=== PATIENT | male | born 1995 | race Caucasian/White ===

== ENCOUNTER 2018-04-23 03:06 | Emergency (ER) | payer MEDICAID ==
[2018-04-23] MEDS ORDERED: Lidocaine 2% with EPINEPHrine 1:200,000 20 ML SDV INFILT ONE (03:21)
[2018-04-23] MEDS ORDERED: Lidocaine 1% with EPINEPHrine 1:100,000 20 ML MDV ONE (03:24)
[2018-04-23] MEDS ORDERED: Lidocaine 1% with EPINEPHrine 1:100,000 20 ML MDV INJECT ONE (03:25)
--- NOTE | 2018-04-23 03:59 | EDM.PDOC ---
ED HPI GENERAL MEDICAL PROBLEM - General Chief Complaint: Laceration Stated Complaint: RIGHT HAND AND ELBOW LACERATION Time Seen by Provider: 04/23/18 03:16 Source of Information: Reports: Patient History Limitations: Reports: No Limitations, Intoxication - History of Present Illness INITIAL COMMENTS - FREE TEXT/NARRATIVE: Patient presents with lacerations to his right hand and elbow. Apparently he was presenting anger toward his girlfriend and instead talking it through he punched the window and then used his elbow to punching another window pane. This happened approximately an hour prior to coming in. Patient not homicidal suicidal. He had been drinking a lot of alcohol earlier in the evening and is here with a sober friend. Handed. Tetanus was given within the last 5 years. No numbness or tingling. No other injury noted. - Related Data Allergies Allergy/AdvReac Type Severity Reaction Status Date / Time No Known Allergies Allergy Verified 04/23/18 03:15 Home Meds: Home Meds Venlafaxine [Effexor XR] 75 mg PO DAILY 04/23/18 [History] traZODone HCl [Trazodone HCl] 50 mg PO BEDTIME 04/23/18 [History] Past Medical History - Past Health History Medical/Surgical History: Denies Medical/Surgical History Respiratory History: Reports: Asthma Psychiatric History: Reports: Depression, PTSD - Past Surgical History HEENT Surgical History: Reports: Other (See Below) Other HEENT Surgeries/Procedures: rhinoplasty Social & Family History - Family History Family Medical History: Noncontributory - Recreational Drug Use Recreational Drug Use: Yes Recreational Drug Type: Reports: Marijuana/Hashish ED ROS GENERAL - Review of Systems Review Of Systems: See Below Respiratory: Denies: Shortness of Breath Cardiovascular: Denies: Chest Pain GI/Abdominal: Denies: Abdominal Pain Musculoskeletal: Reports: Hand Pain. Denies: Joint Pain, Muscle Pain Skin: Reports: Wound, Other (Multiple wounds to his knuckles of his right hand as well as "road rash to the right elbow) Neurological: Denies: Numbness, Paresthesia, Tingling ED EXAM, SKIN/RASH Exam: See Below Exam Limited By: Intoxication General Appearance: Alert, WD/WN, No Apparent Distress Respiratory/Chest: Lungs Clear Cardiovascular: Regular Rate, Rhythm Extremities: Arm Pain, Other (Pain to the knuckles of his right hand especially in the area of the thumb and index finger. He does have some lacerations noted to the middle finger around the MCP joint area. His a few small lacerations more proximal to the dorsum of the hand. He also has a lot of small punctate abrasions/road rash type looking areas on his right elbow. Range of motion elbow was otherwise intact range of motion to the wrist and hand are within normal limits no bony pain.) Neurological: Alert, Oriented. No: Sensory/Motor Deficit Skin: Wound/Incision Location, Skin: Upper Extremity, Right ED SKIN PROCEDURES - Laceration/Wound Repair Right Hand Lac/Wound length In cm: 5 Appearance: Subcutaneous, Stellate, Irregular, Clean Distal NVT: Neuro & Vascular Intact, No Tendon Injury Anesthetic Type: Local Local Anesthesia - Lidocaine (Xylocaine): 1% with EPI Local Anesthetic Volume: 4cc Skin Prep: Saline Exploration/Debridement/Repair: Wound Explored, In a Bloodless Field, No Foreign Material Found, Multiple Flaps Aligned Closed with: Sutures Suture Size: other # of Sutures: 6 Suture Type: Nylon Sterile Dressing Applied: Nurse Tetanus Status Addressed: No Complications: No Progress/Comments: X-rays are performed and no signs of any glass foreign bodies noted prior to suturing. Wounds were closed with 5-0 Ethilon stitches interrupted fashion wound cares instructions given and reviewed Course - Vital Signs Text/Narrative:: Wounds were all cleaned with sterile saline, examined and explored, used 1% Xylocaine with epinephrine to anesthetize wounds to the knuckles. Lacerations repaired standard fashion, x-ray of the hand performed to rule out any glass foreign bodies. The elbow seems to be otherwise intact with normal range of motion no elbow or bony pain noted. Wound care structures given and reviewed, suture removal in 7-10 days, return percussion's and wound care instructions given and reviewed. Last Recorded V/S: Last Vital Signs Temp 98.7 F 04/23/18 03:13 Pulse 100 04/23/18 03:13 Resp 16 04/23/18 03:13 BP 153/94 H 04/23/18 03:13 Pulse Ox 98 04/23/18 03:13 - Orders/Labs/Meds Orders: Active Orders 24 hr Category Date Time Status Hand 2V Rt [CR] Stat Exams 04/23/18 03:46 Taken Meds: Medications Discontinued Medications Generic Name Dose Route Start Last Admin Trade Name Freq PRN Reason Stop Dose Admin Lidocaine/Epinephrine 30 ml 04/23/18 03:21 Xylocaine-Mpf 2%-Epi 1:200,000 INFILT 04/23/18 03:22 ONETIME ONE Lidocaine/Epinephrine Confirm 04/23/18 03:24 Xylocaine 1% With Epinephrine 1:100,000 Administered 04/23/18 03:25 Dose 20 ml .ROUTE .STK-MED ONE Departure - Departure Time of Disposition: :18 Disposition: Admitted As Inpatient 66 Clinical Impression: Abrasion, elbow w/o infection Acute alcohol intoxication Qualifiers: Complication of substance-induced condition: uncomplicated Qualified Code(s): F10.929 - Alcohol use, unspecified with intoxication, unspecified Laceration of hand Qualifiers: Encounter type: initial encounter Foreign body presence: without foreign body Laterality: right Qualified Code(s): S61.411A - Laceration without foreign body of right hand, initial encounter - Discharge Information Instructions: Stitches, Fernando, or Adhesive Wound Closure, [id number], Laceration Care, Adult, [id number], Sutured Wound Care, Alcohol Intoxication Forms: ED Department Discharge Additional Instructions: Sutures need to be removed in 7-10 days. Return sooner however if any increasing signs of infection such as pain, bleeding, pus, swelling, redness, red streaks, worse - My Orders Last 24 Hours: My Active Orders 04/23/18 03:46 Hand 2V Rt [CR] Stat - Assessment/Plan Last 24 Hours: My Active Orders 04/23/18 03:46 Hand 2V Rt [CR] Stat
--- NOTE | 2018-04-23 14:07 | CR ---
Right hand: Two views of the right hand were obtained. Comparison: No prior right hand exam. Joint spaces are preserved. No fracture, dislocation or other bony abnormality is seen. Impression: 1. No abnormality is appreciated on two-view right hand exam. Diagnostic code #1
== END 2018-04-23 04:20 | disposition home or self-care (01) ==
LOC: JD.ED 03:06
DX: S61.411A Laceration without foreign body of right hand, initial encounter (principal); W22.8XXA Striking against or struck by other objects, initial encounter; F10.129 Alcohol abuse with intoxication, unspecified
CPT/HCPCS: 12002; 73120-26-RT; 73120-RT; 99283-25; 99284-25

== ENCOUNTER 2018-05-14 01:14 | Emergency (ER) | payer SELFPAY ==
--- NOTE | 2018-05-14 01:35 | EDM.PDOC ---
ED HPI GENERAL MEDICAL PROBLEM - General Chief Complaint: Laceration Stated Complaint: SUICIDE ATTEMPT Time Seen by Provider: 05/14/18 01:15 Source of Information: Reports: Patient, Significant Other (Girlfriend) History Limitations: Reports: Intoxication - History of Present Illness INITIAL COMMENTS - FREE TEXT/NARRATIVE: The patient is brought to the ED by his girlfriend after falling backwards, striking a broken mirror and cutting his left hand, around 00:50 this morning. He denies any other injuries. Review of prior medical records indicates that the patient was seen at the [place] ED on 11/28/2013 for a 0.5 cm laceration to his right forearm, then in this ED on 04/23/2018 for right hand and right elbow lacerations, after punching to window panes. The patient is behaving intoxicated, and states that he drank 1/2 of a fifth of whiskey, a fifth of vodka, and a fifth of tequila tonight. He states that he has a history of alcohol abuse, but stopped drinking when he started smoking marijuana, but because marijuana is illegal in this state, he has stopped smoking marijuana and is now drinking heavily again. The patient's PCP is Erna March. Left Hand Pain Score (Numeric/FACES): 6 - Related Data Allergies Allergy/AdvReac Type Severity Reaction Status Date / Time No Known Allergies Allergy Verified 04/23/18 03:15 Home Meds: Home Meds Venlafaxine [Effexor XR] 75 mg PO DAILY 04/23/18 [History] traZODone HCl [Trazodone HCl] 50 mg PO BEDTIME 04/23/18 [History] Past Medical History Psychiatric History: Reports: ADHD, Anxiety, Depression, PTSD - Past Surgical History HEENT Surgical History: Reports: Adenoidectomy, Naso-Sinus Surgery (Rhinoplasty) , Tonsillectomy Social & Family History - Family History Family Medical History: Noncontributory - Tobacco Use Smoking Status *Q: Current Every Day Smoker Years of Tobacco use: 6 Packs/Tins Daily: 0.5 - Alcohol Use Alcohol Use History: Yes Alcohol Use Frequency: Binges - Recreational Drug Use Recreational Drug Use: Yes Drug Use in Last 12 Months: Yes Recreational Drug Type: Reports: Marijuana/Hashish - Living Situation & Occupation Living situation: Reports: Single, with Significant Other (Girlfriend) ED ROS GENERAL - Review of Systems Review Of Systems: Unable To Obtain ED EXAM, SKIN/RASH Exam: See Below Exam Limited By: Intoxication General Appearance: Alert, Other (Loud, slurred speech, consistent with alcohol intoxication) Extremities: Other (There is a 1.5 cm x 1.0 cm avulsion over the left 1st MCP joint. There are two 1.5 cm curvilinear lacerations over the radial aspect of the left first IP joint. There is a 2.5 cm curvilinear laceration over the radial aspect of the left 1st MCP joint. All of these wounds were initially bleeding, but are now minimally bleeding after they were soaked in saline. Neurovascular status of the left upper extremity is intact.) Course - Vital Signs Last Recorded V/S: Last Vital Signs Temp 36.1 C 05/14/18 01:32 Pulse 110 H 05/14/18 01:32 Resp 20 05/14/18 01:32 BP 164/83 H 05/14/18 01:32 Pulse Ox 95 05/14/18 01:32 - Orders/Labs/Meds Orders: Active Orders 24 hr Category Date Time Status EKG Documentation Completion [RC] STAT Care 05/14/18 01:38 Inactive Bupivacaine 0.5% [Sensorcaine-MPF 0.5%] Med 05/14/18 01:48 Once 10 ml INJECT ONETIME ONE EPINEPHrine/Lidocaine/Tetracai [LET Soln] Med 05/14/18 01:48 Stat 3 ml TOP ONETIME STA Lidocaine 1% w/EPINEPHrine [Xylocaine 1% with Med 05/14/18 01:48 Once EPINEPHrine 1:100,000] 20 ml INJECT ONETIME ONE Medication Orders Bupivacaine HCl (Sensorcaine-Mpf 0.5%) 10 ml INJECT ONETIME ONE Stop: 05/14/18 01:49 Lidocaine/Epinephrine (Xylocaine 1% With Epinephrine 1:100,000) 20 ml INJECT ONETIME ONE Stop: 05/14/18 01:49 Lidocaine/Tetracaine (Let Soln) 3 ml TOP ONETIME STA Stop: 05/14/18 01:49 Meds: Medications Generic Name Dose Route Start Last Admin Trade Name Freq PRN Reason Stop Dose Admin Bupivacaine HCl 10 ml 05/14/18 01:48 Sensorcaine-Mpf 0.5% INJECT 05/14/18 01:49 ONETIME ONE Lidocaine/Epinephrine 20 ml 05/14/18 01:48 Xylocaine 1% With Epinephrine 1:100,000 INJECT 05/14/18 01:49 ONETIME ONE Lidocaine/Tetracaine 3 ml 05/14/18 01:48 Let Soln TOP 05/14/18 01:49 ONETIME STA - Re-Assessments/Exams Free Text/Narrative Re-Assessment/Exam: 05/14/18 01:31 Notified by Corina BALDWIN that the patient is leaving AMA. 05/14/18 01:31 Notified that the patient has changed his mind, and will now stay for evaluation. 05/14/18 01:47 The initial presentation was that this was a suicide attempt, therefore I entered psychiatric clearance orders, however, after evaluating the patient's injuries, this appears to be accidental, consistent with his story that he fell. I have canceled the psychiatric clearance orders. 05/14/18 01:49 Notified by Corina BALDWIN that the patient again changed his mind, and has left AMA, without giving me the opportunity to suture his wounds. Departure - Departure Time of Disposition: 01:49 Disposition: Against Medical Advice 07 Condition: Fair Clinical Impression: Laceration of left hand, Alcohol intoxication, Alcohol abuse - Discharge Information *PRESCRIPTION DRUG MONITORING PROGRAM REVIEWED*: Not Applicable *COPY OF PRESCRIPTION DRUG MONITORING REPORT IN PATIENT ANA: Not Applicable - My Orders Last 24 Hours: My Active Orders 05/14/18 01:38 EKG Documentation Completion [RC] STAT 05/14/18 01:48 Bupivacaine 0.5% [Sensorcaine-MPF 0.5%] 10 ml INJECT ONETIME ONE EPINEPHrine/Lidocaine/Tetracai [LET Soln] 3 ml TOP ONETIME STA Lidocaine 1% w/EPINEPHrine [Xylocaine 1% with EPINEPHrine 1:100,000] 20 ml INJECT ONETIME ONE - Assessment/Plan Last 24 Hours: My Active Orders 05/14/18 01:38 EKG Documentation Completion [RC] STAT 05/14/18 01:48 Bupivacaine 0.5% [Sensorcaine-MPF 0.5%] 10 ml INJECT ONETIME ONE EPINEPHrine/Lidocaine/Tetracai [LET Soln] 3 ml TOP ONETIME STA Lidocaine 1% w/EPINEPHrine [Xylocaine 1% with EPINEPHrine 1:100,000] 20 ml INJECT ONETIME ONE
[2018-05-14] MEDS ORDERED: Lidocaine 1% with EPINEPHrine 1:100,000 20 ML MDV INJECT ONE (01:48)
[2018-05-14] MEDS ORDERED: Lidocaine/EPINEPHrine/Tetracaine Soln 1 ML TOP STA (01:48)
[2018-05-14] MEDS ORDERED: Bupivacaine 0.5% 10 ML SDV INJECT ONE (01:48)
== END 2018-05-14 01:45 | disposition left against medical advice (07) ==
LOC: JD.ED 01:14
DX: S61.412A Laceration without foreign body of left hand, initial encounter (principal); F10.129 Alcohol abuse with intoxication, unspecified; F17.210 Nicotine dependence, cigarettes, uncomplicated; Z79.899 Other long term (current) drug therapy; W25.XXXA Contact with sharp glass, initial encounter
CPT/HCPCS: 99283; 99284

== ENCOUNTER 2018-08-30 19:52 | Emergency (ER) | payer MEDICAID ==
[2018-08-30] MEDS ORDERED: Ondansetron 4 MG Tab.DIS PO ONE (20:08)
--- NOTE | 2018-08-30 20:13 | EDM.PDOC ---
ED HPI GENERAL MEDICAL PROBLEM - General Chief Complaint: Neurological Problem Stated Complaint: UNABLE TO SPEAK OR WALK Time Seen by Provider: 08/30/18 19:58 Source of Information: Reports: Patient History Limitations: Reports: No Limitations. Denies: Altered Mental Status - History of Present Illness INITIAL COMMENTS - FREE TEXT/NARRATIVE: This is a 23-year-old male. He states he drank a whole bottle of Esequiel Mckeon last night and he has ulcers in the stomach and the kind of irritated the ulcers this morning when he woke up he took some Prilosec. Then later this afternoon he felt, nauseated and he vomited up some applesauce he had eaten previously. Then he decided that he was dehydrated and he drank 3 bottles of water that seem to stay down. He was feeling better so we decided to go to [place] and then go to [employer] to get something to eat and on the way to [place] he says he had a hard time driving so his girlfriend drove for him and when they got to [employer] he started having spasms in his arms but he was breathing really rapidly. He says he thought he was having a stroke as both of his arms were spasming up and he couldn't use his hands. By the time he got here he was still breathing somewhat rapidly but as he slowed down the symptoms are resolving. He has no history of panic attacks. He does state he thinks he took some Meth last night but he is not sure because he was drunk. Bilateral Hand Pain Score (Numeric/FACES): 2 - Related Data Allergies Allergy/AdvReac Type Severity Reaction Status Date / Time No Known Allergies Allergy Verified 08/30/18 19:59 Home Meds: Home Meds Venlafaxine [Effexor XR] 75 mg PO DAILY 04/23/18 [History] traZODone HCl [Trazodone HCl] 50 mg PO BEDTIME 04/23/18 [History] Past Medical History - Past Health History Medical/Surgical History: Denies Medical/Surgical History Respiratory History: Reports: Asthma Gastrointestinal History: Reports: Gastritis, GERD Psychiatric History: Reports: ADHD, Addiction, Anxiety, Depression, PTSD - Past Surgical History HEENT Surgical History: Reports: Adenoidectomy, Myringotomy w Tube(s), Naso- Sinus Surgery, Tonsillectomy Social & Family History - Family History Family Medical History: Noncontributory - Tobacco Use Smoking Status *Q: Current Some Day Smoker Years of Tobacco use: 5 Packs/Tins Daily: 0.2 Used Tobacco, but Quit: No Second Hand Smoke Exposure: No - Caffeine Use Caffeine Use: Reports: Coffee, Energy Drinks, Soda - Alcohol Use Days Per Week of Alcohol Use: 5 Number of Drinks Per Day: 2 Total Drinks Per Week: 10 - Recreational Drug Use Recreational Drug Use: Yes Drug Use in Last 12 Months: Yes Recreational Drug Type: Reports: Methamphetamine Recreational Drug Use Frequency: Rarely - Living Situation & Occupation Living situation: Reports: Single, with Significant Other (Girlfriend) ED ROS GENERAL - Review of Systems Review Of Systems: See Below Constitutional: Reports: Weakness. Denies: Fever, Chills HEENT: Reports: No Symptoms Respiratory: Reports: Other (Rapid breathing) Cardiovascular: Denies: Chest Pain Endocrine: Reports: No Symptoms GI/Abdominal: Reports: Nausea, Vomiting, Other (He states his stomach feels like his churning a little bit). Denies: Abdominal Pain : Reports: No Symptoms Musculoskeletal: Reports: Other (Carpal spasms in both upper extremities) Skin: Reports: No Symptoms Neurological: Reports: Numbness, Tingling, Trouble Speaking, Difficulty Walking , Other (The trouble walking and the trouble speaking has completely resolved this time once his breathing slowed down as carpal spasms resolved). Denies: Confusion, Headache Psychiatric: Reports: No Symptoms Hematologic/Lymphatic: Reports: No Symptoms - Physical Exam Exam: See Below Exam Limited By: No Limitations General Appearance: Alert, WD/WN, No Apparent Distress Eye Exam: Bilateral Eye: Normal Inspection Ears: Normal External Exam Nose: Normal Inspection Throat/Mouth: Normal Inspection, Normal Lips, Normal Voice, No Airway Compromise Head Exam: Normocephalic Neck: Supple Respiratory/Chest: No Respiratory Distress, Lungs Clear, Normal Breath Sounds, Other (He is breathing normal rate right now) Cardiovascular: Regular Rate, Rhythm, No Murmur GI/Abdominal: Soft, Other (Mild soreness in the epigastric area but there is no masses no rebound no guarding no distention and no tenderness) Neuro Exam (Abbreviated): Alert, Oriented, CN II-XII Intact, No Motor/Sensory Deficits Back Exam: Full Range of Motion Extremities: Normal Inspection, Normal Range of Motion Psychiatric: Normal Affect, Normal Mood Skin Exam: Warm, Dry Course - Vital Signs Last Recorded V/S: Last Vital Signs Temp 96.2 F 08/30/18 19:54 Pulse 109 H 08/30/18 19:54 Resp 24 H 08/30/18 19:54 BP 147/87 H 08/30/18 19:54 Pulse Ox 100 08/30/18 19:54 - Orders/Labs/Meds Labs: Laboratory Tests 08/30/18 08/30/18 Range/Units 20:20 20:20 WBC 12.54 H (4.23-9.07) K/mm3 RBC 4.91 (4.63-6.08) M/mm3 Hgb 15.1 (13.7-17.5) gm/L Hct 43.7 (40.1-51.0) % MCV 89.0 (79.0-92.2) fl MCH 30.8 (25.7-32.2) pg MCHC 34.6 (32.2-35.5) g/dl RDW Std Deviation 40.4 (35.1-43.9) fL Plt Count 256 (163-337) K/mm3 MPV 10.7 (9.4-12.3) fl Neut % (Auto) 57.6 (34.0-67.9) % Lymph % (Auto) 32.5 (21.8-53.1) % Ramsey % (Auto) 8.7 (5.3-12.2) % Eos % (Auto) 0.6 L (0.8-7.0) Baso % (Auto) 0.4 (0.1-1.2) % Neut # (Auto) 7.21 H (1.78-5.38) K/mm3 Lymph # (Auto) 4.08 H (1.32-3.57) K/mm3 Ramsey # (Auto) 1.09 H (0.30-0.82) K/mm3 Eos # (Auto) 0.08 (0.04-0.54) K/mm3 Baso # (Auto) 0.05 (0.01-0.08) K/mm3 Sodium 141 (136-145) mEq/L Potassium 3.2 L (3.5-5.1) mEq/L Chloride 101 (98-107) mEq/L Carbon Dioxide 23 (21-32) mEq/L Anion Gap 20.2 H (5-15) BUN 11 (7-18) mg/dL Creatinine 1.0 (0.7-1.3) mg/dL Est Cr Clr Drug Dosing 124.45 mL/min Estimated GFR (MDRD) > 60 (>60) mL/min BUN/Creatinine Ratio 11.0 L (14-18) Glucose 92 (74-106) mg/dL Calcium 9.7 (8.5-10.1) mg/dL Total Bilirubin 0.4 (0.2-1.0) mg/dL AST 26 (15-37) U/L ALT 69 H (16-63) U/L Alkaline Phosphatase 106 (46-116) U/L Total Protein 8.0 (6.4-8.2) g/dl Albumin 4.8 (3.4-5.0) g/dl Globulin 3.2 gm/dL Albumin/Globulin Ratio 1.5 (1-2) Meds: Medications Discontinued Medications Generic Name Dose Route Start Last Admin Trade Name [place] PRN Reason Stop Dose Admin Ondansetron HCl 4 mg 08/30/18 20:08 08/30/18 20:11 Zofran Odt PO 08/30/18 20:09 4 mg ONETIME ONE Administration - Re-Assessments/Exams Free Text/Narrative Re-Assessment/Exam: 08/30/18 21:12 I spoke to the patient regarding his lab results. I believe his stomach irritation is related to his drinking and I encouraged him not to drink anymore alcohol. He can also take some Prilosec again. He needs to continue to hydrate himself with Gatorade and water but drink it slowly. I encouraged him to take it easy over the next 24 hours and rest and sleep. 08/30/18 21:13 The patient is doing fine denies any symptoms presently just states he feels a little weak. He has been able to keep fluids down in the ER with no difficulty. He wants to go home. Departure - Departure Time of Disposition: 21:13 Disposition: Home, Self-Care 01 Condition: Good Clinical Impression: Hyperventilation syndrome, Mild dehydration - Discharge Information *PRESCRIPTION DRUG MONITORING PROGRAM REVIEWED*: Not Applicable *COPY OF PRESCRIPTION DRUG MONITORING REPORT IN PATIENT ANA: Not Applicable Referrals: Erna March NP [Primary Care Provider] - Forms: ED Department Discharge Additional Instructions: Do not drink any more alcohol because it's upsetting your stomach, you may take some Prilosec to help with your stomach, continues to drink Gatorade and water but drink it slowly and do not gulp it down, rest and sleep over the next 24 hours and just take it easy, follow-up with your primary care provider next week for recheck or return to the ER if needed
== END 2018-08-30 21:47 | disposition home or self-care (01) ==
LOC: JD.ED 19:52
DX: F45.8 Other somatoform disorders (principal); R11.2 Nausea with vomiting, unspecified; E86.0 Dehydration; F17.210 Nicotine dependence, cigarettes, uncomplicated; J45.909 Unspecified asthma, uncomplicated; F41.9 Anxiety disorder, unspecified; F32.9 Major depressive disorder, single episode, unspecified; Z79.899 Other long term (current) drug therapy
CPT/HCPCS: 36415; 80053; 85025; 99284; A9270

== ENCOUNTER 2020-07-12 20:56 | Emergency (ER) | payer MEDICAID ==
[2020-07-12] MEDS ORDERED: Diphtheria,Pertussis(Acell),Tetanus Vaccine 0.5 ML Syringe IM ONE (21:27)
--- NOTE | 2020-07-12 21:32 | EDM.PDOC ---
ED HPI GENERAL MEDICAL PROBLEM - General Chief Complaint: Laceration Stated Complaint: hand lac Time Seen by Provider: 07/12/20 21:07 Source of Information: Reports: Patient History Limitations: Reports: No Limitations - History of Present Illness INITIAL COMMENTS - FREE TEXT/NARRATIVE: Mr. Coronado is a very pleasant 25-year-old man who now presents to the ED after lacerating his left 2nd finger while carving wood around 20:45 tonight. He is otherwise uninjured. Here in the ED, the patient is found to be hemodynamically stable, afebrile, saturating 95% on room air. The patient states that his stepfather has tested positive for COVID-19, and the patient lives with him. He states, however, that he has not had any symptoms. He denies having a recent fever, chills, sore throat, ear pain, nasal or sinus congestion, cough, dyspnea, chest pain, palpitations, nausea, vomiting, constipation, diarrhea, abdominal pain, urinary symptoms, recent weight gain or weight loss, recent bloody bowel movements or black bowel movements, recent joint aches, headaches, or rashes. The patient's PCP is Erna March NP. He does not recall when his last tetanus was, but he agreed to receive one here tonight. He has not received an influenza vaccine this season, but agreed to receive one here tonight. - Related Data Allergies Allergy/AdvReac Type Severity Reaction Status Date / Time No Known Allergies Allergy Verified 07/12/20 21:07 Home Meds: Home Meds Venlafaxine [Effexor XR] 175 mg PO DAILY 04/23/18 [History] traZODone HCl [Trazodone HCl] 50 mg PO BEDTIME 04/23/18 [History] hydrOXYzine HCL [Hydroxyzine HCl] 25 mg PO DAILY 07/12/20 [History] Past Medical History Respiratory History: Reports: Asthma Gastrointestinal History: Reports: Gastritis, GERD Psychiatric History: Reports: ADHD, Addiction, Anxiety, Depression, PTSD Endocrine/Metabolic History: Reports: Obesity/BMI 30+ - Past Surgical History HEENT Surgical History: Reports: Adenoidectomy, Myringotomy w Tube(s), Naso- Sinus Surgery, Tonsillectomy Other HEENT Surgeries/Procedures: rhinoplasty Social & Family History - Family History Family Medical History: No Pertinent Family History - Tobacco Use Tobacco Use Status *Q: Current Every Day Tobacco User Years of Tobacco use: 7 Packs/Tins Daily: 0.2 - Caffeine Use Caffeine Use: Reports: None - Recreational Drug Use Recreational Drug Use: Yes Recreational Drug Type: Reports: Marijuana/Hashish Recreational Drug Use Frequency: Rarely - Living Situation & Occupation Living situation: Reports: Single, with Significant Other (Girlfriend) ED ROS GENERAL - Review of Systems Review Of Systems: Comprehensive ROS is negative, except as noted in HPI. ED EXAM, SKIN/RASH Exam: See Below Exam Limited By: No Limitations General Appearance: Alert, WD/WN, No Apparent Distress Extremities: Other (There is an approximately 2.25 cm linear laceration along the ulnar aspect of the proximal phalanx of the left second finger. The laceration is primarily partial-thickness, although may be full-thickness in sm all areas. No tendinous injury to the finger. Neurovascular status of the finger is intact.) ED SKIN PROCEDURES - Laceration/Wound Repair Left Hand Appearance: Subcutaneous, Linear, Clean Distal NVT: Neuro & Vascular Intact, No Tendon Injury Skin Prep: Saline Exploration/Debridement/Repair: Wound Explored, In a Bloodless Field, Explored to Base, No Foreign Material Found Closed with: Dermabond Lac/Wound length In cm: 2.3 Drain Placement: No Sterile Dressing Applied: None Tetanus Status Addressed: Yes Complications: No Course - Vital Signs Last Recorded V/S: Last Vital Signs Temp 36.1 C 07/12/20 21:08 Pulse 95 07/12/20 21:08 Resp 19 07/12/20 21:08 BP 144/88 H 07/12/20 21:08 Pulse Ox 95 07/12/20 21:08 - Orders/Labs/Meds Orders: Active Orders 24 hr Category Date Time Status Influenza Vaccine Charge [RC] .DISCHARGE Care 07/12/20 21:27 Active Vaccines to be Administered [RC] PER UNIT ROUTINE Care 07/12/20 21:27 Active CORONAVIRUS COVID-19 PCR [facility] Stat Lab 07/12/20 21:42 Ordered Flu Vacc [id number](6Mos Up)/Pf [Fluzone Quad Med 07/12/20 22:00 Once Syringe] 60 mcg IM .ONCE ONE Medication Orders Influenza Virus Vaccine (Fluzone Quad Syringe) 60 mcg IM .ONCE ONE Stop: 07/12/20 22:01 Meds: Medications Generic Name Dose Route Start Last Admin Trade Name Freq PRN Reason Stop Dose Admin Influenza Virus Vaccine 60 mcg 07/12/20 22:00 Fluzone Quad [id number] Syringe IM 07/12/20 22:01 .ONCE ONE Discontinued Medications Generic Name Dose Route Start Last Admin Trade Name Freq PRN Reason Stop Dose Admin Diphtheria/Tetanus/Acell Pertussis 0.5 ml 07/12/20 21:27 Adacel IM 07/12/20 21:28 .ONCE ONE Influenza Virus Vaccine 1 each 07/12/20 21:27 Pharmacy To Dose - Influenza Vaccine IM 07/12/20 21:28 ONETIME ONE - Re-Assessments/Exams Free Text/Narrative Re-Assessment/Exam: 07/12/20 21:26 I applied Dermabond across the finger laceration. The patient tolerated the procedure well. He will be given a tetanus vaccination and influenza vaccination prior to discharge home. 07/12/20 21:45 Notified by Rubi BALDWIN that the patient requested a test for the SARS-CoV-2 virus. A send-out test will be performed. Departure - Departure Time of Disposition: 21:27 Disposition: Home, Self-Care 01 Condition: Good Clinical Impression: Laceration of left index finger - Discharge Information *PRESCRIPTION DRUG MONITORING PROGRAM REVIEWED*: Not Applicable *COPY OF PRESCRIPTION DRUG MONITORING REPORT IN PATIENT ANA: Not Applicable Instructions: Laceration Care, Adult Referrals: Erna March NP [Primary Care Provider] - Forms: ED Department Discharge Additional Instructions: You were seen in the emergency room after accidentally cutting your left index finger. Your wound was closed with Dermabond. You may bathe as normal, then pat the Dermabond dry, then cover with a clean Band-Aid, daily. Allow the glue to flake off on its own over the next several days. Do not pick at the glue. You may take [id number] Tylenol or ibuprofen as needed for discomfort. If any other problems, please do not hesitate to return to the ER. You were given both a tetanus vaccination and an influenza vaccination during your ER visit. Sepsis Event Note (ED) - Evaluation Sepsis Screening Result: No Definite Risk - Focused Exam Vital Signs: Vital Signs Temp Pulse Resp BP Pulse Ox 07/12/20 21:08 36.1 C 95 19 144/88 H 95 - My Orders Last 24 Hours: My Active Orders 07/12/20 21:27 Influenza Vaccine Charge [RC] .DISCHARGE Vaccines to be Administered [RC] PER UNIT ROUTINE 07/12/20 21:42 CORONAVIRUS COVID-19 PCR [facility] Stat - Assessment/Plan Last 24 Hours: My Active Orders 07/12/20 21:27 Influenza Vaccine Charge [RC] .DISCHARGE Vaccines to be Administered [RC] PER UNIT ROUTINE 07/12/20 21:42 CORONAVIRUS COVID-19 PCR [facility] Stat
[2020-07-12] MEDS ORDERED: FLU VACC QS2020-21(6MOS UP)/PF 60 MCG/0.5 ML SYRINGE IM ONE (22:00)
== END 2020-07-12 21:50 | disposition home or self-care (01) ==
LOC: JD.ED 20:56
DX: S61.211A Laceration without foreign body of left index finger without damage to nail, initial encounter (principal); U07.1 COVID-19; F41.9 Anxiety disorder, unspecified; F32.9 Major depressive disorder, single episode, unspecified; E66.9 Obesity, unspecified; J45.909 Unspecified asthma, uncomplicated; F17.210 Nicotine dependence, cigarettes, uncomplicated; Z68.33 Body mass index [BMI] 33.0-33.9, adult; Z23 Encounter for immunization; W26.8XXA Contact with other sharp object(s), not elsewhere classified, initial encounter
CPT/HCPCS: 12001; 90471; 90715; 99283-25; U0002

== ENCOUNTER 2021-03-10 12:45 | Emergency (ER) | payer MEDICAID ==
--- NOTE | 2021-03-10 13:16 | EDM.PDOC ---
ED HPI GENERAL MEDICAL PROBLEM - General Chief Complaint: Laceration Stated Complaint: LACERATION ON RIGHT WRIST Time Seen by Provider: 03/10/21 12:58 Source of Information: Reports: Patient, RN Notes Reviewed History Limitations: Reports: No Limitations - History of Present Illness INITIAL COMMENTS - FREE TEXT/NARRATIVE: Patient is a 25-year-old male presenting to the emergency part with complaints of laceration to the his right inner wrist. Patient reports that he was working on his car and cut his wrist on a piece of metal. He was unsure when his last tetanus vaccination was. Right Wrist Pain Score (Numeric/FACES): 2 - Related Data Allergies Allergy/AdvReac Type Severity Reaction Status Date / Time No Known Allergies Allergy Verified 03/10/21 13:00 Home Meds: Home Meds Venlafaxine [Effexor XR] 175 mg PO DAILY 04/23/18 [History] traZODone HCl [Trazodone HCl] 50 mg PO BEDTIME 04/23/18 [History] hydrOXYzine HCL [Hydroxyzine HCl] 25 mg PO BEDTIME 07/12/20 [History] Albuterol Sulfate [Proair Hfa] 1 inh IH Q4H PRN 03/10/21 [History] Past Medical History - Past Health History Medical/Surgical History: Denies Medical/Surgical History Respiratory History: Reports: Asthma Gastrointestinal History: Reports: Gastritis, GERD Psychiatric History: Reports: ADHD, Addiction, Anxiety, Depression, PTSD Endocrine/Metabolic History: Reports: Obesity/BMI 30+ - Past Surgical History HEENT Surgical History: Reports: Adenoidectomy, Myringotomy w Tube(s), Naso-S inus Surgery, Tonsillectomy Other HEENT Surgeries/Procedures: rhinoplasty Social & Family History - Family History Family Medical History: No Pertinent Family History - Tobacco Use Tobacco Use Status *Q: Current Every Day Tobacco User Years of Tobacco use: 7 Packs/Tins Daily: 0.1 - Caffeine Use Caffeine Use: Reports: Energy Drinks - Recreational Drug Use Recreational Drug Use: Yes Recreational Drug Type: Reports: Marijuana/Hashish - Living Situation & Occupation Living situation: Reports: Single, with Significant Other (Girlfriend) ED ROS GENERAL - Review of Systems Review Of Systems: Comprehensive ROS is negative, except as noted in HPI. ED EXAM, SKIN/RASH Exam: See Below General Appearance: Alert, WD/WN, No Apparent Distress Respiratory/Chest: No Respiratory Distress, Lungs Clear, Normal Breath Sounds, No Accessory Muscle Use, Chest Non-Tender Cardiovascular: Normal Peripheral Pulses, Regular Rate, Rhythm, No Edema, No Gallop, No JVD, No Murmur, No Rub Extremities: Other (2 cm superficial laceration to the inner aspect of the right wrist. No active bleeding.) Neurological: Alert, Oriented, CN II-XII Intact, Normal Cognition, Normal Gait, Normal Reflexes, No Motor/Sensory Deficits Psychiatric: Normal Affect, Normal Mood ED SKIN PROCEDURES - Laceration/Wound Repair Right Ventral Wrist Appearance: Superficial Skin Prep: Chlorhexidine (Hibiciens), Saline Exploration/Debridement/Repair: Wound Explored, Explored to Base, No Foreign Material Found Closed with: Dermabond Lac/Wound length In cm: 2 Sterile Dressing Applied: None Tetanus Status Addressed: Yes (Based on records, Tdap was given in June 2020.) Complications: No Course - Vital Signs Last Recorded V/S: Last Vital Signs Temp 96.4 F L 03/10/21 12:57 Pulse 87 03/10/21 12:57 Resp 16 03/10/21 12:57 BP 128/87 03/10/21 12:57 Pulse Ox 97 03/10/21 12:57 Departure - Departure Time of Disposition: 13:16 Disposition: Home, Self-Care 01 Condition: Good Clinical Impression: Laceration of wrist Qualifiers: Encounter type: initial encounter Laterality: right Qualified Code(s): S61.511A - Laceration without foreign body of right wrist, initial encounter - Discharge Information *PRESCRIPTION DRUG MONITORING PROGRAM REVIEWED*: No *COPY OF PRESCRIPTION DRUG MONITORING REPORT IN PATIENT ANA: No Instructions: Sutures, Fernando, or Adhesive Wound Closure, [id number] Referrals: Erna March NP [Primary Care Provider] - Forms: ED Department Discharge Additional Instructions: You were seen in the emergency department today for laceration to your right inner wrist. Wound was cleansed. This was able to be closed with Dermabond glue. This should begin to fall off over the next few days. Do pick at it or remove it. Watch for signs of infection including increased redness, swelling or purulent drainage. If this should occur, you should be reevaluated. Return to ER as needed. Sepsis Event Note (ED) - Evaluation Sepsis Screening Result: No Definite Risk - Focused Exam Vital Signs: Vital Signs Temp Pulse Resp BP Pulse Ox 03/10/21 12:57 96.4 F L 87 16 128/87 97
== END 2021-03-10 13:28 | disposition home or self-care (01) ==
LOC: JD.ED 12:45
DX: S61.511A Laceration without foreign body of right wrist, initial encounter (principal); J45.909 Unspecified asthma, uncomplicated; E66.9 Obesity, unspecified; Z68.30 Body mass index [BMI] 30.0-30.9, adult; Z72.0 Tobacco use; Z79.899 Other long term (current) drug therapy; W26.8XXA Contact with other sharp object(s), not elsewhere classified, initial encounter
CPT/HCPCS: 12001; 99282; 99282-25

== ENCOUNTER 2022-11-02 10:13 | Emergency (ER) | payer MEDICAID ==
[2022-11-02] MEDS ORDERED: Ibuprofen 600 MG Tab PO ONE (12:29)
== END 2022-11-02 12:46 | disposition home or self-care (01) ==
LOC: JD.ED 10:13
DX: S09.90XA Unspecified injury of head, initial encounter (principal); J45.909 Unspecified asthma, uncomplicated; E66.9 Obesity, unspecified; Z68.30 Body mass index [BMI] 30.0-30.9, adult; Z72.0 Tobacco use; Z88.1 Allergy status to other antibiotic agents; W00.0XXA Fall on same level due to ice and snow, initial encounter
CPT/HCPCS: 70450; 99283; A9270

== ENCOUNTER 2022-12-21 21:09 | Emergency (ER) | payer MEDICAID ==
[2022-12-21 22:22] LABS: BARBITURATE SCREEN,URINE NEGATIVE (CUTOFF=200); BENZODIAZEPINES SCREEN,URINE NEGATIVE (CUTOFF=150); BUPRENORPHINE SCREEN,URINE NEGATIVE (CUTOFF=10); METHADONE SCREEN, URINE NEGATIVE (CUT0FF=200); METHAMPHETAMINES SCREEN, URINE PRESUMPTIVE POSITIVE (CUTOFF=500); OXYCODONE SCREEN,URINE NEGATIVE (CUT0FF=100); PROPOXYPHENE SCREEN,URINE NEGATIVE (CUTOFF=300); THC SCREEN,URINE 20 NG/ML PRESUMPTIVE POSITIVE (CUTOFF=50)
[2022-12-21 22:33] LABS: AMPHETAMINES SCREEN, URINE PRESUMPTIVE POSITIVE (CUTOFF=500)
[2022-12-21 22:40] LABS: HEMATOCRIT 44.4 % (40.1-51.0); HEMOGLOBIN 14.6 gm/dl (13.7-17.5); MEAN CORPUSCULAR HEMOGLOBIN 31.1 pg (25.7-32.2); MEAN CORPUSCULAR HGB CONC 32.9 g/dl (32.2-35.5); MEAN CORPUSCULAR VOLUME 94.7 fl (79.0-92.2); MEAN PLATELET VOLUME 10.6 fl (9.4-12.3); PLATELET COUNT,PLT 271 K/mm3 (163-337); RED BLOOD CELL COUNT 4.69 M/mm3 (4.63-6.08); WHITE BLOOD CELL COUNT,WBC 10.93 K/mm3 (4.23-9.07)
[2022-12-21 23:12] LABS: A/G RATIO 0.9 (1-2); ALBUMIN 3.5 g/dl (3.4-5.0); ANION GAP 12.3 (5-15); BILIRUBIN TOTAL 0.2 mg/dL (0.2-1.0); EST CRCL DRUG DOSING (CG) 120.27 mL/min; POTASSIUM,K 4.3 mEq/L (3.5-5.1); PROTEIN TOTAL,TP 7.3 g/dl (6.4-8.2); TSH 0.447 uIU/mL (0.358-3.74)
[2022-12-21 23:19] LABS: BAND PERCENT MAN 1 % (0-10); BASOPHILS PERCENT MAN 1 (0.2-1.2); EOSINOPHILS PERCENT MAN 0 % (0.8-7.0); LYMPHOCYTES % ATYPICAL MANUAL 0 %; LYMPHOCYTES PERCENT MAN 36 % (20-40); MONOCYTES PERCENT MAN 7 % (2-10)
[2022-12-21 23:20] LABS: PLATELET COUNT ESTIMATE ADEQUATE
== END 2022-12-22 00:06 ==
LOC: JD.ED 21:09
DX: F19.10 Other psychoactive substance abuse, uncomplicated (principal); J45.909 Unspecified asthma, uncomplicated; E66.9 Obesity, unspecified; Z68.30 Body mass index [BMI] 30.0-30.9, adult; Z88.1 Allergy status to other antibiotic agents
CPT/HCPCS: 36415; 80053; 80143; 80179; 80306; 80307; 84443; 85007; 85027; 93005; 93010; 99283; 99284

== ENCOUNTER 2023-05-28 03:36 | Emergency (ER) | payer SELFPAY ==
[2023-05-28] MEDS ORDERED: Ibuprofen 600 MG Tab PO ONE (04:36)
== END 2023-05-28 04:47 | disposition home or self-care (01) ==
LOC: JD.ED 03:36
DX: S70.11XA Contusion of right thigh, initial encounter (principal); J45.909 Unspecified asthma, uncomplicated; F17.210 Nicotine dependence, cigarettes, uncomplicated; E66.9 Obesity, unspecified; Z68.34 Body mass index [BMI] 34.0-34.9, adult; Z88.1 Allergy status to other antibiotic agents; W01.0XXA Fall on same level from slipping, tripping and stumbling without subsequent striking against object, initial encounter
CPT/HCPCS: 73552; 99284; A9270; 99283

== ENCOUNTER 2023-06-07 20:44 | Emergency (ER) | payer OTHER ==
[2023-06-07 21:05] LABS: BASOPHILS ABSOLUTE AUTO 0.1 K/mm3 (0.0-0.2); BASOPHILS PERCENT AUTO 0.6 % (0.0-1.0); EOSINOPHILS ABSOLUTE AUTO 0.3 K/mm3 (0.0-0.4); HEMATOCRIT 44.2 % (42.0-52.0); HEMOGLOBIN 15.2 gm/dl (14.0-18.0); IMMATURE GRAN ABSOLUTE AUTO 0.04 K/mm3 (0.00-0.05); IMMATURE GRAN PERCENT AUTO 0.3 % (0.0-0.4); LYMPHOCYTES ABSOLUTE AUTO 4.3 K/mm3 (1.0-4.8); LYMPHOCYTES PERCENT AUTO 29.4 % (24.0-44.0); MEAN CORPUSCULAR HEMOGLOBIN 31.2 pg (28.0-32.0); MEAN CORPUSCULAR HGB CONC 34.4 g/dl (32.0-36.0); MEAN CORPUSCULAR VOLUME 90.8 fl (83.0-99.0); MEAN PLATELET VOLUME 9.9 fl (9.4-12.4); MONOCYTES ABSOLUTE AUTO 1.3 K/mm3 (0.0-0.8); MONOCYTES PERCENT AUTO 9.1 % (0.0-8.0); NEUTROPHILS ABSOLUTE AUTO 8.5 K/mm3 (1.8-7.7); NEUTROPHILS PERCENT AUTO 58.6 % (41.0-71.0); PLATELET COUNT,PLT 290 K/mm3 (150-400); RED BLOOD CELL COUNT 4.87 M/mm3 (4.52-5.90); WHITE BLOOD CELL COUNT,WBC 14.54 K/mm3 (3.9-11.3)
[2023-06-07 21:18] LABS: A/G RATIO 1.1 (1-2); ALBUMIN 4.2 g/dl (3.4-5.0); ANION GAP 12.8 (5-15); BILIRUBIN TOTAL 0.7 mg/dL (0.2-1.0); BUN/CREATININE RATIO 13.3 (14-18); CALCIUM 9.3 mg/dL (8.5-10.1); CREATININE 1.2 mg/dL (0.7-1.3); EST CRCL DRUG DOSING (CG) 90.25 mL/min; POTASSIUM,K 3.8 mEq/L (3.5-5.1); PROTEIN TOTAL,TP 7.9 g/dl (6.4-8.2)
[2023-06-07] MEDS ORDERED: Iopamidol 612 MG/ML 30 ML SDV IVPUSH ONE (21:18)
[2023-06-07] MEDS ORDERED: Iopamidol 612 MG/ML 100 ML Bottle IVPUSH ONE (21:18)
[2023-06-07] MEDS ORDERED: Diphtheria,Pertussis(Acell),Tetanus Vaccine 0.5 ML Syringe IM ONE (22:00)
[2023-06-07 22:31] LABS: APPEARANCE,URINE CLEAR (Clear); BILIRUBIN,URINE NEGATIVE (Negative); COLOR,URINE YELLOW (Yellow); GLUCOSE,URINE NEGATIVE (Negative); KETONES,URINE TRACE (Negative); LEUKOCYTE ESTERASE,URINE NEGATIVE (Negative); NITRITE,URINE NEGATIVE (Negative); OCCULT BLOOD,URINE NEGATIVE (Negative); PROTEIN,URINE 2+ (Negative)
[2023-06-07 22:37] LABS: BARBITURATE SCREEN,URINE NEGATIVE (CUTOFF=200); BENZODIAZEPINES SCREEN,URINE NEGATIVE (CUTOFF=150); BUPRENORPHINE SCREEN,URINE NEGATIVE (CUTOFF=10); METHADONE SCREEN, URINE NEGATIVE (CUT0FF=200); METHAMPHETAMINES SCREEN, URINE PRESUMPTIVE POSITIVE (CUTOFF=500); OXYCODONE SCREEN,URINE NEGATIVE (CUT0FF=100); PROPOXYPHENE SCREEN,URINE NEGATIVE (CUTOFF=300); THC SCREEN,URINE 20 NG/ML PRESUMPTIVE POSITIVE (CUTOFF=50)
[2023-06-07 22:38] LABS: AMPHETAMINES SCREEN, URINE PRESUMPTIVE POSITIVE (CUTOFF=500)
[2023-06-07 22:52] LABS: RBC,URINE 0-5 /hpf (0-5); SQUAMOUS EPITHELIAL CELLS,UR 0-5 /hpf (0-5); WBC,URINE 0-5 /hpf (0-5)
[2023-06-07 22:53] LABS: AMORPHOUS SEDIMENT,URINE FEW /hpf (NOT SEEN); BACTERIA,URINE FEW /hpf (FEW); MUCUS,URINE FEW /hpf (FEW)
== END 2023-06-07 23:20 | disposition home or self-care (01) ==
LOC: JD.ED 20:44
DX: F15.10 Other stimulant abuse, uncomplicated (principal); F12.10 Cannabis abuse, uncomplicated; J45.909 Unspecified asthma, uncomplicated; F17.210 Nicotine dependence, cigarettes, uncomplicated; E66.9 Obesity, unspecified; Z68.35 Body mass index [BMI] 35.0-35.9, adult; Z79.899 Other long term (current) drug therapy; Z88.1 Allergy status to other antibiotic agents; Z23 Encounter for immunization; V89.2XXA Person injured in unspecified motor-vehicle accident, traffic, initial encounter
CPT/HCPCS: 36415; 70450; 71260; 72125; 73100; 73562; 73610; 74177; 80053; 80306; 80307; 81001; 85025; 90471; 90715; 99285; Q9967